=== PATIENT | male | born 1970 | race Hispanic/Latino ===

== ENCOUNTER → 2017-08-05 | Outpatient (CLI) | payer OTHER ==
--- NOTE | 2017-08-05 11:26 | Diagnostic Imaging Report ---
PROCEDURE: US abdomen complete. TECHNIQUE: Multiple real-time grayscale images were obtained over the abdomen in various projections. INDICATION: Generalized abdominal pain. FINDINGS: The liver is normal in size without focal lesions. There is no biliary ductal dilatation. The common bile duct measures less than 4 mm. There is no cholelithiasis, gallbladder wall thickening or pericholecystic fluid. The visualized portions of the pancreas are unremarkable. The body and tail are somewhat obscured by bowel gas. Spleen measures 11 cm. The aorta is nonaneurysmal. IVC is patent. Both kidneys are normal in appearance. There is no ascites. IMPRESSION: Unremarkable abdominal ultrasound Dictated by: Dictated on workstation # [id number]
== END ==
LOC: RAD 10:18
PROVIDERS: ATTEND Nurse Practitioner Family
DX: R10.84 Generalized abdominal pain (principal)
CPT/HCPCS: 76700

== ENCOUNTER → 2018-11-16 | Outpatient (CLI) | payer OTHER ==
[~2018-11-16] MED LIST: REGADENOSON 0.4 MG/5 ML SYR (LEXISCAN) IV ONE
[2018-11-16] MEDS: CATHETER FLUSH 10 ML SYR IV PRN ×2 (10:26→11:32)
[2018-11-16 11:30] VITALS: BP 136/73
--- NOTE | 2018-11-17 12:38 | Cardiology Stress Test Report ---
Stress Test Report Type of NM Stress Test: Test Type: LEXISCAN 0.4MG/5ML Date of Procedure/Referring: Date of Procedure: Nov 16, 2018 PCP Sho Lopez Aprn Admitting Physician Center/[facility] Indications: Chest pain Baseline Heart Rate: 78 Baseline Blood Pressure: Blood Pressure Systolic: 136 Blood Pressure Diastolic: 73 Baseline EKG: Baseline EKG: sinus rhythm Summary & Conclusion: Summary: The patient was brought to the stress lab after informed consent was taken. Stress test was performed according to the Lexiscan protocol. 0.4 mg of IV Lexiscan was given. Low-grade exercise was performed. Baseline EKG showed sinus rhythm at 78 BPM. Initial blood pressure was 149/77 mmHg. Maximum heart rate was 100 bpm and blood pressure 148/86 mmHg. Patient did not have any chest pain, arrhythmias or ST segment changes during the stress test. 10.33 mCi of Myoview were given for rest imaging and 31.7 mCi of Myoview given for stress imaging. Transient ischemic dilatation score 1.13, EF 55 percent. Normal wall motion. Normal myocardial perfusion imaging during rest and stress. Conclusion: Pharmacological stress test was negative for ischemia. Normal LV function with no wall motion abnormalities. Normal myocardial perfusion imaging during rest and stress. Aury ADAMS MD Nov 17, 2018 12:38
== END ==
LOC: CARD 07:48
PROVIDERS: ATTEND Nurse Practitioner Family
DX: I10 Essential (primary) hypertension (principal); R07.89 Other chest pain
CPT/HCPCS: 78452; 93017